=== PATIENT | female | born 1960 | race Caucasian/White ===

== ENCOUNTER → 2021-04-07 | Outpatient (CLI) | payer BC ==
[~2021-04-07] VITALS: Ht 170.2 cm; Wt 108.9 kg
[~2021-04-07] MED LIST: NITROGLYCERIN SPRAY/4.9GM CAN TL ONE
== END | disposition home or self-care (01) ==
LOC: CT 09:27
DX: R94.39 Abnormal result of other cardiovascular function study (principal); I51.7 Cardiomegaly
CPT/HCPCS: 75571; Q9967; Z7610